=== PATIENT | male | born 1980 | race Caucasian/White ===

== ENCOUNTER 2020-06-17 02:40 | Emergency (ER) | payer SELFPAY ==
[~2020-06-17] VITALS: Ht 170.2 cm; Wt 86.4 kg
[~2020-06-17 02:40] MED LIST: CEPH-571 PO; HYDR-4383 PO
[2020-06-17 04:23] VITALS: BP 145/78
== END 2020-06-17 04:24 ==
LOC: ER 02:40
DX: S09.90XA Unspecified injury of head, initial encounter (principal); Z72.89 Other problems related to lifestyle; Z79.2 Long term (current) use of antibiotics; X58.XXXA Exposure to other specified factors, initial encounter; Y93.89 Activity, other specified; Y92.89 Other specified places as the place of occurrence of the external cause; Y99.8 Other external cause status
CPT/HCPCS: 99284